=== PATIENT | male | born 1940 | race Caucasian/White ===

== ENCOUNTER → 2018-12-27 | Outpatient (CLI) | payer OTHER ==
[~2018-12-27] MED LIST: IOHEXOL 300 mgI/ML (OMNIPAQUE) 150 ML BTL IV ONE
== END ==
LOC: FIMAGING 09:18
PROVIDERS: ATTEND Nurse Practitioner Family
DX: T82.898A Other specified complication of vascular prosthetic devices, implants and grafts, initial encounter (principal); I25.10 Atherosclerotic heart disease of native coronary artery without angina pectoris
CPT/HCPCS: 82565-PO; Q9967

== ENCOUNTER 2019-03-17 08:21 | Day surgery (SDC) | payer OTHER ==
[2019-03-17] MEDS ORDERED: ceFAZolin 2 GM/DEXTROSE 100 ML IV ONE (08:38)
[2019-03-17] MEDS ORDERED: BUPIVACAINE 0.5% 30 ML SDV ONE (08:43)
--- NOTE | 2019-03-17 09:17 | PDANEPAE ---
ANE History of Present Illness ventral hernia ANE Past Medical History - Cardiovascular History Hx Hypertension: Yes Hx Arrhythmias: No Hx Chest Pain: No Hx Coronary Artery / Peripheral Vascular Disease: Yes Hx Palpitations: No Cardiovascular History Comment: CAD s/p CABG 5 years ago. AAA s/p endograft x2 , endoleak fixed in Dec 2018 at [facility] - Pulmonary History Hx COPD: No Hx Asthma/Reactive Airway Disease: No Hx Recent Upper Respiratory Infection: No Hx Oxygen in Use at Home: No Hx Sleep Apnea: No - Neurologic History Hx Cerebrovascular Accident: No Hx Seizures: No Hx Dementia: Yes - Endocrine History Hx Diabetes: No Hypothyroid: Yes Hyperthyroid: No Obesity: no - Renal History Hx Renal Disorders: No - Liver History Hx Hepatic Disorders: No ANE Review of Systems Review of systems is: negative Review of Systems: - Exercise capacity Exercise capacity: >=4 METS ANE Patient History - Allergies Allergies/Adverse Reactions: No Known Allergies Allergy (Unverified 03/17/19 08:40) - Home Medications Home medications: home medication list seen and reviewed Home Medications: Aspirin 81 mg PO DAILY 03/14/19 [Last Taken 03/16/19] Docusate Sodium DAILY 03/14/19 [Last Taken 03/16/19] Levothyroxine DAILY 03/14/19 [Last Taken 03/16/19] Lisinopril DAILY 03/14/19 [Last Taken 03/16/19] Melatonin HS 03/14/19 [Last Taken 03/10/19] - NPO status NPO Status: no food or drink >8 hours - Anes Hx Anes Hx: no prior problems ANE Labs/Vital Signs - Vital Signs Height: 160.02 cm Weight: 61.235 kg ANE Physical Exam - Airway Neck exam: FROM Mallampati Score: Class 2 Mouth exam: poor dentition - Pulmonary Pulmonary: no respiratory distress - Cardiovascular Cardiovascular: regular rate and rhythym - ASA Status ASA Status: III ANE Anesthesia Plan Anesthesia Plan: GA with mask
--- NOTE | 2019-03-17 09:24 | PDHPUP ---
History & Physical Update H&P update statement: This history and physical update is based on an assessment of the patient which was completed after admission or registration (within 24 hours), but prior to the surgery/procedure. H&P update: H&P reviewed & patient examined, no change in patient's condition since H&P completed
[2019-03-17] MEDS ORDERED: LR 1,000 ML IV ONE (09:51)
[2019-03-17] MEDS ORDERED: fentaNYL 100 MCG/2 ML INJ ONE (10:02)
[2019-03-17] MEDS ORDERED: PROPOFOL/EMULSION 500 MG/50 ML BOTTLE IV ONE (10:02)
[2019-03-17] MEDS ORDERED: LIDOCAINE 1% 300 MG/30 ML SDV ONE (10:04)
[2019-03-17] MEDS ORDERED: ALBUTEROL 3 ML DEYVIAL IH PRN (10:29)
[2019-03-17] MEDS ORDERED: oxyCODONE IR 5 MG TAB PO PRN (10:29)
[2019-03-17] MEDS ORDERED: PHENYLEPHRINE HCL 100 MCG/ML SYR IVP PRN (10:29)
[2019-03-17] MEDS ORDERED: LR 500 ML IV PRN (10:29)
[2019-03-17] MEDS ORDERED: ACETAMINOPHEN 500 MG TAB PO PRN (10:29)
[2019-03-17] MEDS ORDERED: NALOXONE HCL 0.4 MG/ML INJ IVP PRN (10:29)
[2019-03-17] MEDS ORDERED: ONDANSETRON 4 MG/2 ML VIAL IVP PRN (10:29)
[2019-03-17] MEDS ORDERED: DEXAMETHASONE 4 MG/ML VIAL IVP PRN (10:29)
[2019-03-17] MEDS ORDERED: MEPERIDINE 25 MG/0.5 ML AMP IVP PRN (10:29)
[2019-03-17] MEDS ORDERED: fentaNYL 100 MCG/2 ML INJ IVP PRN (10:29)
[2019-03-17] MEDS ORDERED: HYDROmorphONE/DILAUDID 1 MG/ML INJ IVP PRN (10:29)
[2019-03-17] MEDS ORDERED: KETOROLAC 30 MG/1 ML SDV ONE (10:42)
--- NOTE | 2019-03-17 11:02 | POSTOPPROG ---
Post Op Note Date of Operation: 03/17/19 Surgeon: Annemarie Garcia Knifer Up: arielle Anesthesiologist: noman Anesthesia: IV Sedation Pre-op Diagnosis: ventral hernia Post-op Diagnosis: same Indication: 78yo M with multiple comorbidities with symptomatic ventral hernia Procedure: open ventral hernia with onlay mesh Findings: fat containing epigastric ventral hernia Inf/Abcess present in the surg proc area at time of surgery?: No EBL: Minimal Complications: none immediately post-operatively Bowel Protocol: N/A Clean Closure Performed: N/A Specimen(s): none
--- NOTE | 2019-03-17 13:22 | CPEKG ---
Test Reason : OPEN Blood Pressure : / mmHG Vent. Rate : 072 BPM Atrial Rate : 072 BPM P-R Int : 183 ms QRS Dur : 086 ms QT Int : 396 ms P-R-T Axes : -24 -18 019 degrees QTc Int : 434 ms Sinus rhythm Borderline left axis deviation Minimal ST elevation, anterior leads Confirmed by Dax Mendez ([id number]) on 03/17/2019 1:22:05 PM Referred By: Annemarie Garcia Confirmed By:Dax Mendez
[2019-03-17 13:23] VITALS: BP 164/83
--- NOTE | 2019-03-17 13:58 | POSTANESTH ---
Post Anesthetic Evaluation Cardiovascular Status: Normal, Stable Respiratory Status: Normal, Stable Level of Consciousness/Mental Status: Can Participate in Eval Pain Control: Adequate, Prn Tx Ordered Nausea/Vomiting Control: Adequate, Prn Tx Ordered Complications Possibly Related to Anesthesia: None Noted
--- NOTE | 2019-03-20 12:05 | GOP ---
[f rep st] OPERATIVE REPORT DATE OF OPERATION: 03/17/2019 SURGEON: Annemarie Garcia MD CUSTOM CLOTHIER: Estrella Streeter, VJ. ANESTHESIA: Monitored anesthesia care with IV sedation. ANESTHESIOLOGIST: Kevyn Palomino MD. PREOPERATIVE DIAGNOSIS: Ventral hernia, incarcerated with associated obstruction. POSTOPERATIVE DIAGNOSIS: Ventral hernia, incarcerated with associated obstruction. PROCEDURE PERFORMED: Open ventral hernia with onlay mesh placed. FINDINGS: Fat-containing epigastric ventral hernia. It was extremely large and could be contributin g to obstruction. ESTIMATED BLOOD LOSS: Minimal. INDICATIONS: The patient is an 78-year-old with multiple comorbidities and a symptomatic ventral her nicholas. It is not reducible and is causing pain. DESCRIPTION OF PROCEDURE: The patient was brought into the operating room and placed supine on the t able. Monitored anesthesia care with IV sedation was performed. I infiltrated all sites with 0.5% M arcaine prior to making incisions. I made an incision over the mass in the epigastric area. I perfo rmed careful dissection through the skin and subcutaneous tissues and immediately encountered omentum . This area was extremely tethered to the fascia. I performed careful dissection with Metzenbaum sc issors along with electrocautery until I could free the omentum from the preperitoneal space. I then worked on clearing everything from the intraabdominal space as well. After everything was fully red uced, the hernia was noted to be approximately 5 cm in length. This actually closed easier transvers valeria rather than vertically. I used 0 PDS to close this I placed an onlay mesh of ProGrip mesh over t he hernia and tacked this down with 0 Surgilon. I closed the deep layer with 3-0 Vicryl. I closed t he skin with 3-0 Vicryl followed by 4-0 Monocryl. Dermabond applied. He was awakened in the operati ng room, transferred to PACU in stable condition. /[id number]/MODL
== END 2019-03-17 13:45 | disposition home or self-care (01) ==
LOC: UNDOADMOB 08:21 → FSGY 08:21 → F3N 08:21 → EDSTATUS 09:45 → FSGY 13:45 → UNDODISOB 13:45
PROVIDERS: ATTEND Surgery
PROC: 0WUF0JZ Supplement Abdominal Wall with Synthetic Substitute, Open Approach (ICD-10-PCS; principal; 2019-03-17 09:45)
DX: K43.2 Incisional hernia without obstruction or gangrene (principal); F01.51 Vascular dementia, unspecified severity, with behavioral disturbance; I25.10 Atherosclerotic heart disease of native coronary artery without angina pectoris; I50.30 Unspecified diastolic (congestive) heart failure; I11.0 Hypertensive heart disease with heart failure; J96.10 Chronic respiratory failure, unspecified whether with hypoxia or hypercapnia; E03.9 Hypothyroidism, unspecified; J70.4 Drug-induced interstitial lung disorders, unspecified; E78.5 Hyperlipidemia, unspecified; Z95.1 Presence of aortocoronary bypass graft
CPT/HCPCS: C1781; J0690; J1885; J2704; J3010